=== PATIENT | female | born 1995 ===

== ENCOUNTER 2023-03-05 17:31 | Inpatient (IN) | payer OTHER ==
[2023-03-05 18:36] VITALS: BMI 19.2
[2023-03-05] MEDS ORDERED: MAG HYDROX/AL HYDROX/SIMETH 30 ML UNIT-DOSE CUP PO PRN (21:36)
[2023-03-05] MEDS ORDERED: MAGNESIUM HYDROX 2400MG/30ML ORAL SUSPENSION 30 ML CUP PO PRN (21:36)
[2023-03-05] MEDS ORDERED: LOPERAMIDE HCL 2 MG CAPSULE PO PRN (21:36)
[2023-03-05] MEDS ORDERED: BENZOCAINE/MENTHOL (CHLORASEPTIC ) LOZENGE MM PRN (21:36)
[2023-03-05] MEDS ORDERED: guaiFENesin 600 MG TABLET.ER (FP) PO PRN (21:36)
[2023-03-05] MEDS ORDERED: ACETAMINOPHEN 325 MG TABLET (FP) PO PRN (21:36)
[2023-03-05] MEDS ORDERED: NALOXONE HCL (KLOXXADO) 8 MG SPRAY NS PRN (21:36)
[2023-03-05] MEDS ORDERED: POLYETHYLENE GLYCOL (HEALTHYLAX) 3350 17 GM PACKET PO PRN (21:36)
[2023-03-05] MEDS ORDERED: hydrOXYzine PAMOATE 25 MG CAPSULE (FP) PO PRN (21:36)
[2023-03-05] MEDS ORDERED: BENZONATATE 200 MG CAPSULE PO PRN (21:36)
[2023-03-05] MEDS ORDERED: NALOXONE HCL 0.4 MG/ML VIAL IM PRN (21:36)
[2023-03-06] MEDS: MELATONIN 5 MG TABLETS PO SCH (01:36)
[2023-03-06] MEDS: THIAMINE HCL 100 MG TABLET (FP) PO SCH (01:39)
[2023-03-06] MEDS ORDERED: TUBERCULIN PPD 5 TU/0.1ML SYRINGE (IN PATIENT USE ONLY) ID ONE (01:39)
[2023-03-06] MEDS: PRENATAL VITAMINS W/ FOLIC ACID TABLET (FP) PO SCH (10:02)
[2023-03-06] MEDS: NICOTINE 14 MG/24 HOURS TOPICAL PATCH TD SCH (10:02)
[2023-03-06] MEDS: NICOTINE POLACRILEX 2 MG GUM BUC PRN (10:03)
[2023-03-06 11:39] LABS: HEMATOCRIT 34.9 % (32.4-45.2); HEMOGLOBIN 11.1 GM/dL (10.7-15.3); MCH 31.4 pg (25.7-33.7); MCHC 31.9 g/dl (32.0-36.0); MEAN CELL VOLUME 98.6 fl (80-96); PLATELET COUNT 163 10^3/uL (134-434); RBC 3.54 M/mm3 (3.60-5.2); RDW 15.1 % (11.6-15.6); WHITE BLOOD COUNT 4.4 K/mm3 (4.0-10.0)
[2023-03-06] MEDS ORDERED: TUBERCULIN PPD 5 TU/0.1ML VIAL ID ONE (11:46)
[2023-03-06] MEDS: TUBERCULIN PPD 5 TU/0.1ML SYRINGE (IN PATIENT USE ONLY) ID ONE (12:00)
[2023-03-06 12:19] LABS: ALBUMIN 3.6 g/dl (3.4-5.0); ALK PHOS 54 U/L (45-117); ANION GAP 7 mmol/L (4-13); BILIRUBIN,TOTAL 0.5 mg/dL (0.2-1); BLOOD UREA NITROGEN 10.5 mg/dL (7-18); CALCIUM 9.2 mg/dL (8.5-10.1); CHLORIDE 104 mmol/L (98-107); CO2 27 mmol/L (21-32); CREATININE 0.6 mg/dL (0.55-1.3); GLUCOSE,RANDOM 105 mg/dL (74-106); POTASSIUM 3.7 mmol/L (3.5-5.1); SGOT/AST 25 U/L (15-37); SGPT/ALT 35 U/L (13-61); SODIUM 139 mmol/L (136-145); TOT PROT 6.6 g/dl (6.4-8.2)
[2023-03-06 18:06] LABS: EPI CELLS >36 /uL (0-25.1); HYALINE CASTS 1 /uL (0-3.1); URINE APPEARANCE CLEAR; URINE BACTERIA 104 /uL (0-1359); URINE BILIRUBIN NEGATIVE (NEGATIVE); URINE COLOR YELLOW; URINE GLUCOSE (UA) NEGATIVE (NEGATIVE); URINE KETONE NEGATIVE (NEGATIVE); URINE LEUK ESTERASE 1+ (NEGATIVE); URINE NITRITE NEGATIVE (NEGATIVE); URINE PROTEIN NEGATIVE (NEGATIVE); URINE RBC 10 /uL (0-23.9); URINE UROBILINOGEN 0.2 mg/dL (0.2-1.0); URINE WBC 96 /uL (0-25.8)
[2023-03-09] MEDS: IBUPROFEN 400 MG TABLET (FP) PO PRN (19:43)
[2023-03-10] MEDS: IBUPROFEN 600 MG TABLET (FP) PO PRN (11:25)
[2023-03-12] MEDS ORDERED: BENZOCAINE 20 % GEL TUBE MM PRN (10:08)
[2023-03-12] MEDS: AMOXICILLIN 500 MG CAPSULE (FP) PO SCH (14:49)
[2023-03-20] MEDS: NICOTINE POLACRILEX 4 MG GUM BUC PRN (09:56)
[2023-04-02 06:52] VITALS: BP 115/70; PULSE 79; RESP 16; TEMP 97.1
== END 2023-04-02 10:15 | disposition home or self-care (01) | DRG 772 ==
LOC: YASAS 17:31 → Y5N 23:55
PROVIDERS: ADMIT Allergy & Immunology; ATTEND Psychiatry & Neurology Pain Medicine
PROC: HZ42ZZZ Group Counseling for Substance Abuse Treatment, Cognitive-Behavioral (ICD-10-PCS; principal; 2023-03-05)
DX: F10.20 Alcohol dependence, uncomplicated (principal); F12.20 Cannabis dependence, uncomplicated; F17.210 Nicotine dependence, cigarettes, uncomplicated; F41.9 Anxiety disorder, unspecified; K08.89 Other specified disorders of teeth and supporting structures; Z20.822 Contact with and (suspected) exposure to COVID-19
CPT/HCPCS: 36415; 80053; 80307; 81003; 81025; 82140; 85027; 86780; 87635; 87811; 93005; 93010